=== PATIENT | male | born 1990 | race Caucasian/White ===

== ENCOUNTER 2022-10-19 22:06 | Emergency (ER) | payer BC | END 2022-10-19 23:21 | disposition home or self-care (01) | LOC: CSHERS 22:06 | DX: F10.129 Alcohol abuse with intoxication, unspecified (principal); K21.9 Gastro-esophageal reflux disease without esophagitis; F17.200 Nicotine dependence, unspecified, uncomplicated; E78.5 Hyperlipidemia, unspecified | CPT/HCPCS: 99284 ==

== ENCOUNTER 2024-06-06 00:46 | Emergency (ER) | payer BC, SELFPAY ==
[2024-06-06] MEDS ORDERED: Dexamethasone 4 mg/ml Vial ONE (01:06)
[2024-06-06] MEDS ORDERED: Ketorolac Tromethamine 30 MG (1 mL) VIAL ONE (01:07)
[2024-06-06] MEDS ORDERED: Dexamethasone 10 MG/ML VIAL ONE (01:08)
== END 2024-06-06 01:29 | disposition home or self-care (01) ==
LOC: CSHERS 00:46
DX: M54.31 Sciatica, right side (principal); F17.290 Nicotine dependence, other tobacco product, uncomplicated
CPT/HCPCS: 96372; 99283; J1100; J1885